=== PATIENT | female | born 2000 | race Caucasian/White ===

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

== ENCOUNTER 2021-09-14 06:18 | Day surgery (SDC) | payer MEDICAID ==
[2021-09-14] MEDS ORDERED: Lactated Ringers 1,000 ML IV SCH (07:00)
[2021-09-14] MEDS ORDERED: Xylocaine-Mpf 2% 5 Ml Vial ONE (07:59)
[2021-09-14] MEDS ORDERED: DIPRIVAN 200 MG/20 ML IV ONE ×2 (07:59→08:46)
[2021-09-14] MEDS ORDERED: Lactated Ringers 1,000 ML IV ONE (08:46)
[2021-09-14 09:15] VITALS: O2SAT 99
[2021-09-14 09:35] VITALS: BP 124/72; PULSE 72
--- NOTE | 2021-09-14 12:12 | OP ---
SURGERY DATE/TIME: 09/14/2021 0834 PREOPERATIVE DIAGNOSIS: Gastroesophageal reflux. POSTOPERATIVE DIAGNOSIS: Mild gastritis. PROCEDURE: Esophagogastroduodenoscopy with cold forceps biopsy. SURGEON: Dr. Mcdaniels. ANESTHESIA: Medications were given by the anesthesia department. BRIEF HISTORY: The patient is a 20-year-old white female who reports she has been having reflux symptoms. She stated she was started on omeprazole a week ago but has not seen any improvement. The patient is felt the need to have endoscopic evaluation. She was appraised of the risks of the procedure including the risk of perforation, phlebitis, untoward reaction to medication, bleeding and missed lesions. The patient verbalized her understanding and desired to have the procedure performed. DESCRIPTION OF PROCEDURE: The patient was given the medications by the anesthesia department. She had continuous pulse oximetry, ECG monitoring, intermittent blood pressure monitoring during the examination. She was placed in the left lateral decubitus position. A bite block was placed and the flexible Olympus gastroscope was used to intubate the oropharynx. A view of the larynx was obtained and was normal. The scope was easily introduced in the esophagus which appeared to be normal throughout its length. The stomach was entered where normal gastric rugal folds were seen. The gastric rodriguez was suctioned dry and the stomach was re-insufflated. The gastric rugal folds distended nicely with insufflation of air. The scope was passed along the greater curvature of the stomach to the antrum which appeared to be mildly erythematous. The pylorus encountered and intubated. Duodenum inspected and found to be essentially normal. The scope is withdrawn towards the stomach again. A retroflex view was obtained of the lesser curvature, fundus and cardia regions of the stomach and these appeared to be normal as well. The scope was then redirected towards the gastric antrum and biopsies were obtained to rule out the presence of Helicobacter pylori-type organisms. The scope was then removed from the patient who tolerated the procedure well and was sent back to outpatient recovery in good condition.
== END 2021-09-14 09:45 | disposition home or self-care (01) ==
LOC: SDC 06:18
PROVIDERS: ATTEND Family Medicine
DX: K29.70 Gastritis, unspecified, without bleeding (principal); K21.9 Gastro-esophageal reflux disease without esophagitis
CPT/HCPCS: 84703; J2704

== ENCOUNTER 2022-09-29 05:48 | Emergency (ER) | payer MEDICAID ==
[2022-09-29 06:14] VITALS: O2SAT 98
--- NOTE | 2022-09-29 06:40 | ERPHSYRPT ---
- History of Present Illness Historian: patient, other (Mother) Exam Limitations: no limitations Patient Subjective Stated Complaint: pt states she has been having abd pain for approx 2 days. starts at rt of umbilicus and radiates across abd Triage Nursing Assessment: pt alert and oriented, answers questions approp. pt ambulatory with steady gait noted. respirations nonlabored. skin warm and dry. abd soft, pt reports tenderness to ruq with light palpation. bowel sounds present x4. Timing/Duration: day(s) (2 days) Activities at Onset: rest Quality: sharpness, stabbing Abdominal Pain Onset Location: periumbilical (R periumbilical) Pain Radiation: no radiation Severity of Pain-Max: moderate Severity of Pain-Current: mild Modifying Factors: Improves With: movement Associated Symptoms: denies symptoms Previous symptoms: no prior history Hx Tetanus, Diphtheria Vaccination/Date Given: Yes Hx Influenza Vaccination/Date Given: No Hx Pneumococcal Vaccination/Date Given: No Immunizations Up to Date: No <DEMARCUS BURRIS - Last Filed: 09/29/22 07:01> <MAXIMILIAN HAWKINS - Last Filed: 09/29/22 09:29> - History of Present Illness Physician History: 22 yo Wf w R perumbilical abdominal pain x2 days. Pain is stabbing, 3/10, and worse w movement. pain has been up to a 5/10. She denies N/V/D/melena/hematochezia/dysuria/hematuria. Pt has had no abdominal surgeries. (DEMARCUS BURRIS) Allergies/Adverse Reactions: pear Allergy (Verified 09/29/22 06:14) Rash shellfish derived Allergy (Verified 09/29/22 06:14) allergic to pears Home Medications: Norethindrone-E.estradiol-Iron [Junel Fe 1 mg-20 Mcg Tablet] 1 each PO DAILY 09/29/22 [History] Travel Risk - International Travel Have you traveled outside of the country in past 3 weeks: No - Coronavirus Screening Are you exhibiting any of the following symptoms?: No Close contact with a COVID-19 positive Pt in past 14-21 Days: No - Vaccine Status Have you recieved a Covid-19 vaccination: Yes [employer]: [employer] - Vaccination Dates Date of 2cond Vaccination (if applicable): na <DEMARCUS BURRIS - Last Filed: 09/29/22 07:01> - Review of Systems Constitutional: No Symptoms Eyes: No Symptoms Ears, Nose, & Throat: No Symptoms Respiratory: No Symptoms Cardiac: No Symptoms Abdominal/Gastrointestinal: No Symptoms, Abdominal Pain Genitourinary Symptoms: No Symptoms Musculoskeletal: No Symptoms Skin: No Symptoms Neurological: No Symptoms Psychological: No Symptoms Endocrine: No Symptoms Hematologic/Lymphatic: No Symptoms Immunological/Allergic: No Symptoms <DEMARCUS BURRIS - Last Filed: 09/29/22 07:01> - Past Medical History Pertinent Past Medical History: Yes Neurological History: No Pertinent History ENT History: No Pertinent History Cardiac History: No Pertinent History Respiratory History: No Pertinent History Endocrine Medical History: No Pertinent History Musculoskeletal History: No Pertinent History GI Medical History: GERD History: No Pertinent History Psycho-Social History: Anxiety Female Reproductive Disorders: No Pertinent History Other Medical History: ADD - Past Surgical History Past Surgical History: Yes Neuro Surgical History: No Pertinent History Cardiac: No Pertinent History Respiratory: No Pertinent History Gastrointestinal: No Pertinent History Genitourinary: No Pertinent History Musculoskeletal: Other Female Surgical History: No Pertinent History Other Surgical History: achilles tendon lenthoned bilat - Social History Smoking Status: Never smoker Exposure to second hand smoke: Yes Drug Use: none Patient Lives Alone: No - Female History Hx Last Menstrual Period: irreg- within month Hx Now: No <DEMARCUS BURIRS - Last Filed: 09/29/22 07:01> - Physical Exam General Appearance: no apparent distress Eye Exam: PERRL/EOMI, eyes nml inspection Ears, Nose, Throat Exam: normal ENT inspection, TMs normal, pharynx normal, moist mucous membranes Neck Exam: normal inspection, non-tender, supple, full range of motion, No meningismus, No mass, No Brudzinski, No Kernig's Respiratory Exam: normal breath sounds, lungs clear, airway intact, No respiratory distress Cardiovascular Exam: regular rate/rhythm, normal heart sounds, normal peripheral pulses, capillary refill <2 sec, No murmur Gastrointestinal/Abdomen Exam: soft, normal bowel sounds, tenderness (Moderate R periumbilical TTP wo guarding or rebound), No distention, No guarding, No rebound Back Exam: normal inspection, normal range of motion, No CVA tenderness Extremity Exam: normal inspection, normal range of motion Neurologic Exam: alert, oriented x 3, cooperative, post partum nurse II-XII nml as tested, normal mood/affect, nml cerebellar function, nml station & gait, sensation nml, No motor deficits, No sensory deficit Skin Exam: normal color, warm, dry, No rash Lymphatic Exam: No adenopathy SpO2 Interpretation: normal SpO2: 98 O2 Delivery: Room Air <DEMARCUS BURRIS - Last Filed: 09/29/22 07:01> - Nursing Vital Signs Nursing Vital Signs: Initial Vital Signs Temperature 98.1 F 09/29/22 05:57 Pulse Rate 73 09/29/22 05:57 Respiratory Rate 16 09/29/22 05:57 Blood Pressure 140/82 09/29/22 05:57 O2 Sat by Pulse Oximetry 98 09/29/22 05:57 Pain Scale Pain Intensity 5 Hypertensive (DEMARCUS BURRIS) - Course Nursing assessment & vital signs reviewed: Yes <DEMARCUS BURRIS - Last Filed: 09/29/22 07:01> - CT Exams Abdomen/Pelvis CT Interpretation: Tele-radiologist Report (Constipation rectal fecal impaction physiologic pelvic fluid) <MAXIMILIAN HAWKINS - Last Filed: 09/29/22 09:29> Ordered Tests: Active Orders 24 hr Category Date Time Status IV Insertion STAT Care 09/29/22 08:24 Active ABDOMEN AND PELVIS W/0 CONTRAS [CT] Stat Exams 09/29/22 07:23 Completed AMYLASE Stat Lab 09/29/22 06:10 Completed CBC W DIFF Stat Lab 09/29/22 06:10 Completed CMP Stat Lab 09/29/22 06:10 Completed HCG QUALITATIVE, SERUM Stat Lab 09/29/22 06:10 Completed LIPASE Stat Lab 09/29/22 06:10 Completed UA W/RFX UR CULTURE Stat Lab 09/29/22 06:36 Completed Medication Summary Discontinued Medications Generic Name Dose Route Start Last Admin Trade Name Freq PRN Reason Stop Dose Admin Sodium Chloride 1,000 mls @ 999 mls/hr 09/29/22 07:31 09/29/22 08:41 Sodium Chloride 0.9% 1000 Ml IV 09/29/22 08:31 Infused .Q1H1M STA Infusion Sodium Chloride Confirm 09/29/22 07:32 Sodium Chloride 0.9% 1000 Ml Administered 09/29/22 07:33 Dose 1,000 mls @ ud .ROUTE .STK-MED ONE Morphine Sulfate 2 mg 09/29/22 07:23 09/29/22 07:35 Morphine Sulfate 2 Mg/Ml Inj IV 09/29/22 07:24 2 mg STAT ONE Administration Morphine Sulfate Confirm 09/29/22 07:32 Morphine Sulfate 2 Mg/Ml Inj Administered 09/29/22 07:33 Dose 2 mg .ROUTE .STK-MED ONE Ondansetron HCl 4 mg 09/29/22 07:24 09/29/22 07:34 Ondansetron Hcl 4 Mg/2 Ml Vial IV 09/29/22 07:25 4 mg STAT ONE Administration Ondansetron HCl Confirm 09/29/22 07:32 Ondansetron Hcl 4 Mg/2 Ml Vial Administered 09/29/22 07:33 Dose 4 mg .ROUTE .STK-MED ONE Lab/Rad Data: Laboratory Result Diagrams 09/29/22 06:10 09/29/22 06:10 Laboratory Results 09/29/22 09/29/22 09/29/22 Range/Units 06:36 06:10 06:10 WBC (4.0-10.5) x10^3/uL RBC (4.1-5.4) x10^6/uL Hgb (12.0-16.0) g/dL Hct (35-47) % MCV (78-100) fL MCH (26-32) pg MCHC (32-36) g/dL RDW (11.5-14.0) % Plt Count (150-450) x10^3/uL MPV (7.5-11.0) fL Gran % (36.0-66.0) % Immature Gran % (Auto) (0.00-0.4) % Nucleat RBC Rel Count (0.00-0.1) % Eos # (Auto) (0-0.5) x10^3/uL Immature Gran # (Auto) (0.00-0.03) x10^3u/L Absolute Lymphs (auto) (1.0-4.6) x10^3/uL Absolute Monos (auto) (0.0-1.3) x10^3/uL Absolute Nucleated RBC (0.00-0.01) x10^3u/L Lymphocytes % (24.0-44.0) % Monocytes % (0.0-12.0) % Eosinophils % (0.00-5.0) % Basophils % (0.0-0.4) % Absolute Granulocytes (1.4-6.9) x10^3/uL Basophils # (0-0.4) x10^3/uL Sodium 140 (137-145) mmol/L Potassium 3.7 (3.5-5.1) mmol/L Chloride 106 (98-107) mmol/L Carbon Dioxide 22 (22-30) mmol/L Anion Gap 15.2 H (5-15) MEQ/L BUN 9 (7-17) mg/dL Creatinine 0.72 (0.52-1.04) mg/dL Estimated GFR > 60.0 ML/MIN Glucose 94 (74-106) mg/dL Calcium 8.8 (8.4-10.2) mg/dL Total Bilirubin 0.40 (0.2-1.3) mg/dL AST 25 (14-36) U/L ALT 16 (0-35) U/L Alkaline Phosphatase 69 (38-126) U/L Serum Total Protein 7.3 (6.3-8.2) g/dL Albumin 4.2 (3.5-5.0) g/dL Amylase 59 (30-110) U/L Lipase 52 (23-300) U/L Serum HCG, Qual NEGATIVE (NEGATIVE) Urine Color Dark Yellow A (Yellow) Urine Appearance Clear (Clear) Urine pH 5.5 (4.6-8.0) Ur Specific B[place] >=1.030 A (1.005-1.030) Urine Protein Trace A (Negative) Urine Glucose (UA) Negative (Negative) mg/dL Urine Ketones Negative (Negative) Urine Blood Negative (Negative) Urine Nitrite Negative (Negative) Urine Bilirubin Negative (Negative) Urine Urobilinogen 1.0 A (0.2) mg/dL Ur Leukocyte Esterase Negative (Negative) U Hyaline Cast (Auto) NONE SEEN (0-2) /LPF Urine Microscopic RBC 0-2 (0-5) /HPF Urine Microscopic WBC 0-2 (0-5) /HPF Ur Epithelial Cells Moderate A (None Seen) /HPF Urine Bacteria Few A (None Seen) /HPF Urine Culture Reflexed NO (NO) 09/29/22 Range/Units 06:10 WBC 10.9 H (4.0-10.5) x10^3/uL RBC 4.68 (4.1-5.4) x10^6/uL Hgb 13.4 (12.0-16.0) g/dL Hct 40.8 (35-47) % MCV 87.2 (78-100) fL MCH 28.6 (26-32) pg MCHC 32.8 (32-36) g/dL RDW 12.4 (11.5-14.0) % Plt Count 320 (150-450) x10^3/uL MPV 10.4 (7.5-11.0) fL Gran % 58.7 (36.0-66.0) % Immature Gran % (Auto) 0.3 (0.00-0.4) % Nucleat RBC Rel Count 0.0 (0.00-0.1) % Eos # (Auto) 0.14 (0-0.5) x10^3/uL Immature Gran # (Auto) 0.03 (0.00-0.03) x10^3u/L Absolute Lymphs (auto) 3.55 (1.0-4.6) x10^3/uL Absolute Monos (auto) 0.75 (0.0-1.3) x10^3/uL Absolute Nucleated RBC 0.00 (0.00-0.01) x10^3u/L Lymphocytes % 32.6 (24.0-44.0) % Monocytes % 6.9 (0.0-12.0) % Eosinophils % 1.3 (0.00-5.0) % Basophils % 0.2 (0.0-0.4) % Absolute Granulocytes 6.40 (1.4-6.9) x10^3/uL Basophils # 0.02 (0-0.4) x10^3/uL Sodium (137-145) mmol/L Potassium (3.5-5.1) mmol/L Chloride (98-107) mmol/L Carbon Dioxide (22-30) mmol/L Anion Gap (5-15) MEQ/L BUN (7-17) mg/dL Creatinine (0.52-1.04) mg/dL Estimated GFR ML/MIN Glucose (74-106) mg/dL Calcium (8.4-10.2) mg/dL Total Bilirubin (0.2-1.3) mg/dL AST (14-36) U/L ALT (0-35) U/L Alkaline Phosphatase (38-126) U/L Serum Total Protein (6.3-8.2) g/dL Albumin (3.5-5.0) g/dL Amylase (30-110) U/L Lipase (23-300) U/L Serum HCG, Qual (NEGATIVE) Urine Color (Yellow) Urine Appearance (Clear) Urine pH (4.6-8.0) Ur Specific B[place]in (1.005-1.030) Urine Protein (Negative) Urine Glucose (UA) (Negative) mg/dL Urine Ketones (Negative) Urine Blood (Negative) Urine Nitrite (Negative) Urine Bilirubin (Negative) Urine Urobilinogen (0.2) mg/dL Ur Leukocyte Esterase (Negative) U Hyaline Cast (Auto) (0-2) /LPF Urine Microscopic RBC (0-5) /HPF Urine Microscopic WBC (0-5) /HPF Ur Epithelial Cells (None Seen) /HPF Urine Bacteria (None Seen) /HPF Urine Culture Reflexed (NO) <DEMARCUS BURRIS - Last Filed: 09/29/22 07:01> - Progress Progress: improved Counseled pt/family regarding: lab results, diagnosis, need for follow-up, rad results <MAXIMILIAN HAWKINS - Last Filed: 09/29/22 09:29> - Progress Progress Note: 09/29/22 06:39 Pt refused pain meds Nursing note and vital signs reviewed 09/29/22 07:02 Care turned over to Dr. Hawkins at 7AM (DEMARCUS BURRIS) Patient endorsed to Dr. Hawkins at approximately 7 AM. Labs ordered. Patient examined at the bedside. Patient reconsidered pain medication and requested pain control. Patient given a dose of morphine and Zofran. CT scan ordered by Dr. Hawkins. CT scan reveals rectal impaction as well as some constipation. Urinalysis negative for UTI however specific gravity elevated indicating some level of dehydration. Patient admits that she does not drink any water. We advised enema or some sort of laxative in our ED. Patient declined. Patient states she would rather go home and continue her hydration orally as well as take [id number] MiraLAX. Patient currently comfortable. Mother at bedside. No active pain at this time. Will discharge home. CBC CMP ordered. No significant derangements observed on these studies. Lipase negative. Prolonged period of time discussing the importance of hydration and managing constipation at home. Patient works as a GARBAGE COLLECTOR DRIVER and has some level of understanding of our discussion. Mother at bedside ask questions and ask also expressed a clear understanding. Patient is a 22-year-old female presents to our ED for evaluation of 2 days of p eriumbilical pain. Patient has no significant comorbidities. Patient's presenting problem is acute. Vital stable. Complexity of problem addressed is moderate. New diagnosis with uncertain prognosis. Patient's complaint is acute in nature. Patient has constipation with abdominal pain. No critical care time. Patient served as an independent historian. Test ordered. Test reviewed. Urinalysis independently read by Dr. Hawkins. No urinary tract infection however specific gravity is elevated indicating dehydration. Complex of data reviewed and analyzed is moderate. Risk of complication and or risk of morbidity/mortality of patient management is high. Patient received IV controlled medication for pain control. Patient declined enema and laxative in our ED. Patient will self manage at home. Patient agrees to follow-up with primary care doctor within 48 hours for evaluation. Mother at bedside. They voiced no other complaints or concerns at this time. No social determinants of health impede follow-up. Diagnosis is intestinal colic, rectal fecal impaction/constipation. Portions of this note were created with voice recognition technology. There may be grammatical, spelling, punctuation or sound alike errors High Risk- IV/IM/SQ controlled meds, meds requiring monitoring, hospitalization, Nebulizer rx. DNR decision. 09/29/22 09:18 (MAXIMILIAN HAWKINS) <DEMARCUS BURRIS - Last Filed: 09/29/22 07:01> - Departure Departure Disposition: Home Critical Care Time: No <MAXIMILIAN HAWKINS - Last Filed: 09/29/22 09:29> - Departure Clinical Impression: Dehydration, Fecal impaction in rectum, Constipation Condition: Stable Referrals: SARAH AVILES CATERING MANAGER [Primary Care Provider] - Follow up/PCP as directed Additional Instructions: Discharge/Care Plan VICKIEBUSHRA BALBUENA was seen on 09/29/22 in the Emergency Room. The patient was counseled regarding Diagnosis,Lab results, Imaging studies, need for follow up and when to return to the Emergency Room. Prescriptions given: Discharge Note I have spoken with the patient and/or caregivers. I have explained the patient's condition, diagnosis and treatment plan based on the information available to me at this time. I have answered the patient's and/or caregiver's questions and addressed any concerns. The patient and/or caregivers have as good understanding of the patient's diagnosis, condition and treatment plan as can be expected at this point. The vital signs have been stable. The patient's condition is stable and appropriate for discharge from the emergency department. The patient will pursue further outpatient evaluation with the primary care physician or other designated or consulting physician as outlined in the discharge instructions. The patient and/or caregivers are agreeable to this plan of care and follow-up instructions have been explained in detail. The patient and/or caregivers have received these instruction. The patient/and or caregivers are aware that any significant change in condition or worsening of symptoms should prompt an immediate return to this or the closest emergency department or call 911.
[2022-09-29 07:07] LABS: Appearance Clear (Clear); Bilirubin Negative (Negative); Blood Negative (Negative); Glucose, Urine Negative (Negative); Ketones Negative (Negative); Leukocyte Esterase Negative (Negative); Nitrite Negative (Negative); Ph 5.5 (4.6-8.0); Protein,Urine Dip Trace (Negative); Specific Gravity >=1.030 (1.005-1.030)
[2022-09-29] MEDS ORDERED: MORPHINE SULFATE 2 MG INJ IV ONE (07:23)
[2022-09-29] MEDS ORDERED: Zofran 4 MG/2 ML VIAL IV ONE (07:24)
[2022-09-29 07:27] LABS: Bacteria Few /HPF (None Seen); Epithelial Cells Moderate /HPF (None Seen); Hyaline Casts NONE SEEN /LPF (0-2); RBC 0-2 /HPF (0-5); WBC 0-2 /HPF (0-5)
[2022-09-29 07:30] LABS: BASOPHIL % 0.2 % (0.0-0.4); Basophil (Absolute #) 0.02 x10^3/uL (0-0.4); Eosinophil % 1.3 % (0.00-5.0); Eosinophil (Absolute #) 0.14 x10^3/uL (0-0.5); Hematocrit 40.8 % (35-47); Hemoglobin 13.4 g/dL (12.0-16.0); IMMATURE GRAN # 0.03 x10^3u/L (0.00-0.03); IMMATURE GRAN % 0.3 % (0.00-0.4); Lymphocyte (Absolute #) 3.55 x10^3/uL (1.0-4.6); Lymphocytes % 32.6 % (24.0-44.0); Mean Cell Volume 87.2 fL (78-100); Mean Corpuscular Hemoglobin 28.6 pg (26-32); Mean Corpuscular Hgb Concent. 32.8 g/dL (32-36); Mean Platelet Volume 10.4 fL (7.5-11.0); Monocyte (Absolute #) 0.75 x10^3/uL (0.0-1.3); Monocytes % 6.9 % (0.0-12.0); Neutrophil % 58.7 % (36.0-66.0); Platelet Count 320 x10^3/uL (150-450); Red Blood Count 4.68 x10^6/uL (4.1-5.4); Red Cell Distribution Width 12.4 % (11.5-14.0); White Blood Count 10.9 x10^3/uL (4.0-10.5)
[2022-09-29 07:30] LABS: ADD URINE CULTURE? NO (NO)
[2022-09-29] MEDS ORDERED: Sodium Chloride 0.9% 1000 ML 1,000 ML IV STA (07:31)
[2022-09-29] MEDS ORDERED: MORPHINE SULFATE 2 MG INJ ONE (07:32)
[2022-09-29] MEDS ORDERED: Sodium Chloride 0.9% 1000 ML 1,000 ML ONE (07:32)
[2022-09-29] MEDS ORDERED: Zofran 4 MG/2 ML VIAL ONE (07:32)
[2022-09-29 07:43] LABS: HCG SERUM TEST NEGATIVE (NEGATIVE)
[2022-09-29 07:45] LABS: ALBUMIN 4.2 g/dL (3.5-5.0); ALKALINE PHOSPHATASE 69 U/L (38-126); AMYLASE 59 U/L (30-110); ANION GAP 15.2 MEQ/L (5-15); BLOOD UREA NITROGEN 9 mg/dL (7-17); CHLORIDE 106 mmol/L (98-107); Calcium 8.8 mg/dL (8.4-10.2); Carbon Dioxide 22 mmol/L (22-30); Creatinine 1 0.72 mg/dL (0.52-1.04); EST GLOMERULAR FILTRATION RATE > 60.0 ML/MIN; Glucose 94 mg/dL (74-106); LIPASE 52 U/L (23-300); Potassium 3.7 mmol/L (3.5-5.1); SGOT/AST 25 U/L (14-36); SGPT/ALT 16 U/L (0-35); SODIUM 140 mmol/L (137-145); Total Protein 7.3 g/dL (6.3-8.2)
--- NOTE | 2022-09-29 08:39 | XRAY ---
Indication: Right periumbilical pain. Multiple contiguous axial images obtained through the abdomen and pelvis without contrast. Comparison: None Lung bases demonstrates minimal dependent atelectasis. Heart not enlarged. Noncontrasted stomach and bowel loops appear nonobstructed with normal appendix. Mild fecal debris right hemicolon with moderate rectal impaction. Tiny pelvic free fluid presumed physiologic from rupture/leaking cyst. No free air. Remaining liver, gallbladder, pancreas, spleen, adrenal glands, kidneys, ureters, bladder, uterus, and aorta unremarkable for noncontrast exam. Osseous structures intact. No ventral or inguinal hernias. Impression: 1. Rectal impaction. 2. Tiny pelvic free fluid presumed physiologic. 3. Remaining CT abdomen/pelvis without contrast exam is negative.
[2022-09-29 09:21] VITALS: BP 108/68; PULSE 68
== END 2022-09-29 09:26 | disposition home or self-care (01) ==
LOC: ED 05:48
DX: K59.00 Constipation, unspecified (principal); E86.0 Dehydration; R10.33 Periumbilical pain
CPT/HCPCS: 36000; 36415; 74176; 80053; 81001; 82150; 83690; 84703; 85025; 96374; 96375; 99284; J2270; J2405